=== PATIENT | male | born 1990 | race Caucasian/White ===

== ENCOUNTER 2016-11-14 08:50 | Emergency (ER) | payer SELFPAY ==
[~2016-11-14] VITALS: Ht 170.2 cm; Wt 65.0 kg
[2016-11-14 09:23] VITALS: Ht 170.2 cm; Wt 65.0 kg
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
[2016-11-14 10:13] LABS: ADD SCAN DIFF NO
[2016-11-14 10:22] LABS: CHLORIDE 104 mmol/L (97-110)
[2016-11-14 10:23] LABS: POTASSIUM 4.1 mmol/L (3.5-5.1); SODIUM 142 mmol/L (135-144)
[2016-11-14 10:25] LABS: CREATININE 0.81 mg/dl (0.61-1.24)
[2016-11-14 10:26] LABS: ANION GAP 13 (8-16); BLOOD UREA NITROGEN 7 mg/dl (7-20); CARBON DIOXIDE 29 mmol/L (21-31); GLUCOSE 81 mg/dl (70-220)
[2016-11-14 10:30] LABS: BASOPHIL # 0.1 10^3/ul (0.0-0.1); BASOPHILS % 0.6 % (0.0-2.0); EOSINOPHILS # 0.2 10^3/ul (0.0-0.5); EOSINOPHILS % 2.6 % (0.0-7.0); ETHANOL < 10.0 mg/dl; HEMATOCRIT 36.8 % (42.0-52.0); HEMOGLOBIN 12.1 g/dl (14.0-18.0); LYMPHOCYTES # 2.6 10^3/ul (0.8-2.9); LYMPHOCYTES % 30.5 % (15.0-51.0); MEAN CORPUSCULAR HGB CONC 32.9 g/dl (32.0-37.0); MEAN CORPUSCULAR VOLUME 97.4 fl (82.0-101.0); MEAN PLATELET VOLUME 8.7 fl (7.4-10.4); MONOCYTE # 0.7 10^3/ul (0.3-0.9); MONOCYTES % 8.7 % (0.0-11.0); NEUTROPHIL # 4.8 10^3/ul (1.6-7.5); NEUTROPHILS % 57.4 % (39.0-77.0); PLATELET COUNT 230 10^3/UL (140-415); RED BLOOD COUNT 3.78 10^6/ul (4.70-6.10); WHITE BLOOD COUNT 8.4 10^3/ul (4.8-10.8)
[2016-11-14] MEDS ORDERED: IBUPROFEN 600 MG TAB PO ONE (10:30)
[2016-11-14 10:34] LABS: INR 1.06; PARTIAL THROMBOPLASTIN TIME 35.9 Sec (25.0-35.0); PROTIME 13.8 Sec (12.2-14.2); PT RATIO 1.1
[2016-11-14] MEDS ORDERED: IBUP-1542 PO (11:37)
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
[2016-11-14 13:42] VITALS: BP 110/67; RESP 18; TEMP 97.9
== END 2016-11-14 16:43 | disposition home or self-care (01) ==
LOC: E/R 08:50
DX: S06.0X0A Concussion without loss of consciousness, initial encounter (principal); R40.2142 Coma scale, eyes open, spontaneous, at arrival to emergency department; R40.2362 Coma scale, best motor response, obeys commands, at arrival to emergency department; R40.2252 Coma scale, best verbal response, oriented, at arrival to emergency department; F17.210 Nicotine dependence, cigarettes, uncomplicated; S09.8XXA Other specified injuries of head, initial encounter; Y04.0XXA Assault by unarmed brawl or fight, initial encounter
CPT/HCPCS: 70450; 80048; 80306; 85025; 85610; 85730